=== PATIENT | male | born 1965 | race African-American/Black ===

== ENCOUNTER 2021-03-09 09:38 | Emergency (ER) | payer OTHER ==
[~2021-03-09] VITALS: Ht 177.8 cm; Wt 131.1 kg
[2021-03-09] MEDS ORDERED: ALBUTEROL/IPRATROPIUM 3 ML NEB NEB ONE (10:30)
[2021-03-09] MEDS ORDERED: PREDNISONE20 MG PO (10:36)
[2021-03-09] MEDS ORDERED: ALBUTEROL/IPRATROPIUM 3 ML NEB ONE (10:39)
[2021-03-09] MEDS ORDERED: PREDNISONE 20 MG TAB PO ONE (10:45)
[2021-03-09] MEDS ORDERED: PREDNISONE 20 MG TAB ONE (10:47)
== END 2021-03-09 10:47 | disposition home or self-care (01) ==
LOC: FSED 09:56
DX: R05 Cough (principal); J45.901 Unspecified asthma with (acute) exacerbation; V53.5XXA Driver of pick-up truck or van injured in collision with car, pick-up truck or van in traffic accident, initial encounter; W22.11XA Striking against or struck by driver side automobile airbag, initial encounter; Y92.488 Other paved roadways as the place of occurrence of the external cause; I10 Essential (primary) hypertension
CPT/HCPCS: 99282; J7512